=== PATIENT | female | born 2000 | race Two or more races ===

== ENCOUNTER 2023-05-31 19:45 | Inpatient (IN) | payer OTHER ==
[2023-05-31] MEDS: ELECTROLYTE-148 SOLN 1,000 ML IV SCH (21:15)
[2023-05-31 21:29] VITALS: BMI 36.5
[2023-05-31 21:53] LABS: BASO % 0.2 % (0-2.0); EOS % 0.9 % (0-4.5); HEMOGLOBIN 13.8 GM/dL (10.7-15.3); LYMPH % 9.3 % (8-40); MCH 27.4 pg (25.7-33.7); MCHC 33.7 g/dl (32.0-36.0); MEAN CELL VOLUME 81.5 fl (80-96); MEAN PLT VOLUME 9.1 fl (7.5-11.1); MONO % 7.9 % (3.8-10.2); NEUT % 81.7 % (42.8-82.8); PLATELET COUNT 207 10^3/uL (134-434); RBC 5.03 M/mm3 (3.60-5.2); RDW 14.2 % (11.6-15.6); WHITE BLOOD COUNT 13.4 K/mm3 (4.0-10.0)
[2023-05-31 22:02] LABS: POTASSIUM 3.6 mmol/L (3.5-5.1)
[2023-05-31 22:03] LABS: CALCIUM 8.9 mg/dL (8.5-10.1)
[2023-05-31 22:04] LABS: BLOOD UREA NITROGEN 10.2 mg/dL (7-18)
[2023-05-31 22:05] LABS: INR 1.04 (0.83-1.09); PROTHROMBIN TIME (PATIENT) 12.1 SEC (9.7-13.0)
[2023-05-31 22:07] LABS: ACTIVATED PTT 27.6 SECONDS (25.2-36.5); CREATININE 0.6 mg/dL (0.55-1.3)
[2023-06-01] MEDS ORDERED: ELECTROLYTE-148 SOLN 1,000 ML IV SCH ×2 (05:00→09:00)
[2023-06-01] MEDS: ELECTROLYTE-148 SOLN 1,000 ML IV SCH (05:00)
[2023-06-01] MEDS ORDERED: OXYTOCIN 30 UNITS in 0.9% NS 30 UNIT/500 ML INFUS.BAG IVPB ONE (08:37)
[2023-06-01] MEDS ORDERED: OXYTOCIN 30 UNITS in 0.9% NS 30 UNIT/500 ML INFUS.BAG IVPB SCH (09:00)
[2023-06-01] MEDS ORDERED: FENTANYL/BUPIVACAINE/NS/PF - PCEA - 50 ML DISP.SYRIN EP ONE ×3 (14:04→21:54)
[2023-06-01] MEDS ORDERED: BUPIVACAINE HCL/PF 0.25% (2.5MG/ML) 10 ML VIAL ONE ×2 (14:28→23:34)
[2023-06-01] MEDS ORDERED: LIDO 2%/EPI 1:200000 PRESRVFRE (20 ML SDVIAL) ONE (14:28)
[2023-06-01] MEDS: FENTANYL/BUPIVACAINE/NS/PF - PCEA - 50 ML DISP.SYRIN EP SCH (14:45)
[2023-06-01] MEDS ORDERED: NALOXONE HCL 0.4 MG/ML VIAL IVPUSH PRN (16:47)
[2023-06-02] MEDS ORDERED: FENTANYL/BUPIVACAINE/NS/PF - PCEA - 50 ML DISP.SYRIN EP ONE (00:59)
[2023-06-02] MEDS ORDERED: BUPIVACAINE HCL/PF 0.25% (2.5MG/ML) 10 ML VIAL ONE (02:30)
[2023-06-02] MEDS ORDERED: OXYTOCIN 20 UNITS in 0.9% NS 20 UNIT/1,000 ML INFUS.BAG IV ONE (03:24)
[2023-06-02] MEDS ORDERED: ACETAMINOPHEN 325 MG TABLET (FP) PO ONE (04:05)
[2023-06-02] MEDS ORDERED: ACETAMINOPHEN 325 MG TABLET (FP) ONE (04:10)
[2023-06-02] MEDS ORDERED: ceFAZolin SODIUM 1 GM VIAL ONE (04:10)
[2023-06-02] MEDS ORDERED: LIDOCAINE HCL 1% PRESERVATIVE FREE - 30ML VIAL ONE (04:40)
[2023-06-02] MEDS ORDERED: oxyCODONE HCL 5 MG TABLET PO PRN (05:15)
[2023-06-02] MEDS ORDERED: METHYLERGONOVINE MALEATE 0.2 MG/1 ML AMP IM PRN (05:15)
[2023-06-02] MEDS ORDERED: OXYTOCIN 20 UNITS in 0.9% NS 20 UNIT/1,000 ML INFUS.BAG IV SCH (05:15)
[2023-06-02] MEDS ORDERED: ACETAMINOPHEN 325 MG TABLET (FP) PO PRN (05:15)
[2023-06-02] MEDS ORDERED: BENZOCAINE 28 GM HEMORRHOIDAL OINTMENT TP PRN (05:15)
[2023-06-02] MEDS ORDERED: WITCH HAZEL 50% (TUCKS) 40 PAD/JAR PAD TP PRN (05:15)
[2023-06-02] MEDS ORDERED: BENZOCAINE 20% 57 GM BOTTLE TP PRN (05:15)
[2023-06-02] MEDS ORDERED: BISACODYL 10 MG SUPP.RECT RC PRN (05:15)
[2023-06-02] MEDS ORDERED: ceFAZolin 2 GRAM PREMIX BAG IVPB ONE (05:18)
[2023-06-02] MEDS ORDERED: CEFAZOLIN SODIUM 2 GM in SODIUM CHLORIDE 100 ML IVPB ONE (05:30)
[2023-06-02] MEDS ORDERED: IBUPROFEN 600 MG TABLET (FP) PO ONE (07:09)
[2023-06-02] MEDS: IBUPROFEN 600 MG TABLET (FP) PO PRN ×2 (07:20→21:32)
[2023-06-02] MEDS ORDERED: ONDANSETRON 4 MG/2 ML VIAL IVPB PRN (08:13)
[2023-06-02] MEDS: PRENATAL VITAMINS W/ FOLIC ACID TABLET (FP) PO SCH (09:20)
[2023-06-02] MEDS: FERROUS SO4 325 MG TABLET (FP) PO SCH ×2 (09:20→21:32)
[2023-06-02 19:03] VITALS: RESP 18
[2023-06-02] MEDS: FENTANYL/BUPIVACAINE/NS/PF - PCEA - 50 ML DISP.SYRIN EP SCH (19:26)
[2023-06-03] MEDS: IBUPROFEN 600 MG TABLET (FP) PO PRN ×2 (06:22→21:53)
[2023-06-03 07:42] LABS: BASO % 0.3 % (0-2.0); EOS % 0.8 % (0-4.5); HEMATOCRIT 29.7 % (32.4-45.2); HEMOGLOBIN 9.6 GM/dL (10.7-15.3); LYMPH % 11.1 % (8-40); MCH 27.2 pg (25.7-33.7); MCHC 32.5 g/dl (32.0-36.0); MEAN CELL VOLUME 83.6 fl (80-96); MEAN PLT VOLUME 9.2 fl (7.5-11.1); MONO % 9.1 % (3.8-10.2); NEUT % 78.7 % (42.8-82.8); PLATELET COUNT 156 10^3/uL (134-434); RBC 3.55 M/mm3 (3.60-5.2); RDW 14.1 % (11.6-15.6); WHITE BLOOD COUNT 18.7 K/mm3 (4.0-10.0)
[2023-06-03] MEDS: FERROUS SO4 325 MG TABLET (FP) PO SCH ×2 (09:08→21:53)
[2023-06-03] MEDS: PRENATAL VITAMINS W/ FOLIC ACID TABLET (FP) PO SCH (09:08)
[2023-06-03] MEDS ORDERED: SENNOSIDES/DOCUSATE COMBO (SENNA PLUS) TABLET (UD) PO PRN (22:00)
[2023-06-04] MEDS: PRENATAL VITAMINS W/ FOLIC ACID TABLET (FP) PO SCH (09:23)
[2023-06-04] MEDS: FERROUS SO4 325 MG TABLET (FP) PO SCH (09:27)
[2023-06-04] MEDS: IBUPROFEN 600 MG TABLET (FP) PO PRN (09:27)
[2023-06-04 10:02] VITALS: BP 114/70; PULSE 114; TEMP 98.3
== END 2023-06-04 15:20 | disposition home or self-care (01) | DRG 560 ==
LOC: JLDR 19:45 → J3W 06-02 08:10
PROVIDERS: ADMIT Obstetrics & Gynecology; ATTEND Obstetrics & Gynecology
PROC: 10E0XZZ Delivery of Products of Conception, External Approach (ICD-10-PCS; principal; 2023-06-02)
PROC: 0W8NXZZ Division of Female Perineum, External Approach (ICD-10-PCS; 2023-06-02)
PROC: 0HQ9XZZ Repair Perineum Skin, External Approach (ICD-10-PCS; 2023-06-02)
DX: O70.0 First degree perineal laceration during delivery (principal); O48.0 Post-term pregnancy; Z3A.40 40 weeks gestation of pregnancy; Z37.0 Single live birth
CPT/HCPCS: 36415; 80048; 85025; 85610; 85730; 86780; 86850; 86900; 86901